=== PATIENT | female | born 1930 | race Caucasian/White ===

== ENCOUNTER → 2016-10-05 | Outpatient (CLI) | payer MEDICARE ==
[2016-10-05 11:40] LABS: BLOOD UREA NITROGEN 21 mg/dL (7-18)
[2016-10-05 11:44] LABS: ASPARTATE AMINO TRANSFERASE 20 U/L (15-37)
== END | disposition home or self-care (01) ==
LOC: LAB 09:44
PROVIDERS: ATTEND Nurse Practitioner Adult Health
DX: E78.5 Hyperlipidemia, unspecified (principal); R94.31 Abnormal electrocardiogram [ECG] [EKG]; R09.89 Other specified symptoms and signs involving the circulatory and respiratory systems; R00.2 Palpitations; R00.1 Bradycardia, unspecified
CPT/HCPCS: 36415; 80053; 80061

== ENCOUNTER → 2017-01-31 | Outpatient (CLI) | payer MEDICARE ==
[~2017-01-31] MED LIST: ALEN40TA2 PO; CITA10TA4 PO; FENO145T13 PO; FESO4TAB PO; GADOBUTROL 7.5 MMOL/7.5 ML VIAL ONE; LEVO125T PO; MEMA5TAB PO; PROP10TA PO; WARF1TAB7 PO; WARF2TAB7 PO
== END | disposition home or self-care (01) ==
LOC: CFH 14:10
PROVIDERS: ATTEND Registered Nurse
DX: R90.82 White matter disease, unspecified (principal); G31.9 Degenerative disease of nervous system, unspecified
CPT/HCPCS: 70553; A9585